=== PATIENT | male | born 1995 | race Caucasian/White ===

== ENCOUNTER 2016-10-14 22:43 | Emergency (ER) | payer OTHER ==
[~2016-10-14] VITALS: Ht 185.4 cm; Wt 72.8 kg
[2016-10-14 22:51] VITALS: TEMP 36.9; Ht 185.4 cm; Wt 72.8 kg
[2016-10-14] MEDS ORDERED: PROPARACAINE HCL 0.5% OP SOLN 15 ML BTL OP STA (23:50)
[2016-10-15 02:59] VITALS: BP 139/73; PULSE 72; O2SAT 99
[2016-10-15] MEDS ORDERED: PRED1SUS3 OPR (03:00)
[2016-10-15] MEDS ORDERED: PrednisoLONE ACET 1% OP SUSP 5 ML BTL OP ONE (03:00)
--- NOTE | 2016-10-15 03:01 | EMERGENCY ROOM VISIT NOTE ---
History First contact with patient: 23:16 Chief Complaint: EYE ASSESSMENT Stated Complaint: HIT WITH A BEER BOTTLE CAP IN EYE, BLURRY VISION History of Present Illness The patient is a 21 year old male who presents to the Emergency Department by private vehicle with a friend for evaluation of his RIGHT eye injury. The patient reports that he was opening a bottle of beer while prying the bottle on the edge of a table. The bowel Shot up and struck him in the affected eye. He reports taking his contact out immediately. He reports no pain to the eye itself, but noticed that he was having worsening blurry vision. He reports that he is unable to see if he looks down. He reports no history of trauma to the affected eye. He denies a blurry vision at this time. He rates his current discomfort as a 0/10. He denies any dizziness, light headedness, nausea , or vomiting. Patient's tetanus status is up-to-date. Review of Systems A complete 10-point Review of Systems was discussed with the patient, with pertinent positives and negatives listed in the History of Present Illness. All remaining Review of Systems questions can be considered negative unless otherwise specified. Social History Smoking Status: Current Some Day Smoker Smokeless Tobacco Use: No Alcohol Use: occasionally Drug Use: none Marital Status: single Occupation Status: employed Current/Historical Medications Scheduled Prednisolone Acetate (Ophth) (Pred Forte 1% Oph), 1 DROPS OPR QID Allergies Coded Allergies: No Known Allergies (Unverified , 10/14/16) Physical Exam Vital Signs Date Time Temp Pulse Resp B/P Pulse Ox O2 Delivery O2 Flow Rate FiO2 10/15/16 02:59 72 16 139/73 99 Room Air 10/14/16 22:51 36.9 85 18 145/82 96 Room Air Right Eye Acuity: 20/50 with glasses Left Eye Acuity: 20/15 with glasses Pain Rating (0-10): 0 Physical Exam VITAL SIGNS - Vital signs and nursing notes were reviewed. GENERAL - 21-year-old male appearing his stated age. Communicates well with provider and answers questions appropriately. HEAD - Normocephalic, Atraumatic. No Domingo's Sign or Raccoon's Eyes. No depressed skull fractures palpable. EYES - slight oval regularity appreciated to the RIGHT pupil. Reactive to light otherwise. Hyphema noted encompassing one fourth of the lower portion of the pupil. Sclera without noticeable foreign body or excoriations. No injection noted in the RIGHT eye. Without subconjunctival hemorrhage. Palpebral conjunctiva pink and moist with no injection or discharge noted. Slit lamp examination performed as further described. EARS - No deformities of external structures noted on gross examination bilaterally. Handle of malleus, umbo, cone of light, pars tensa/flaccid all easily visualized. NOSE - Midline and without cyanosis. Without discharge. MOUTH/OROPHARYNX - Without perioral cyanosis. Tongue midline with equal elevation of palate bilaterally. No tonsillar hypertrophy, erythema, or exudates noted. Good dentition noted. NECK - FROM assessed. No cervical lymphadenopathy noted. Medical Decision & Procedures Medications Administered Medications (Trade) Dose Ordered Sig/Ryne Route Start Time Stop Time Status Last Admin Dose Admin Proparacaine HCl (Alcaine 0.5% Oph Soln) 2 drops NOW STAT OP 10/14/16 23:50 10/14/16 23:51 DC 10/15/16 00:04 2 DROPS Prednisolone Acetate (Pred Forte 1% Oph Susp) 1 drops NOW ONCE OP 10/15/16 03:00 10/15/16 03:01 DC 10/15/16 02:56 1 DROPS Procedure Slit Lamp Examination was performed of the RIGHT eye(s). Alcaine drops were applied to the affected eye(s) for proper anesthetization. The affected eye(s) were stained with Fluorescein stain to precipitate adequate visualization of any conjunctival/scleral excoriations or ulcers. The patient's face was comfortably rested on the chin guard of the slit lamp apparatus. The lights were dimmed and the affected eye(s) were thoroughly examined under microscopy using the blue light. No uptake was present throughout. Additionally, the eye(s ) were examined under microscopy using the regular light. Close examination revealed a hyphema to the anterior chamber of the RIGHT eye encompassing one quarter of the inferior pole of the pupil. No active bleeding noted. Patient tolerated the procedure well and no complications were met. An Automated Tonometer was utilized to obtain bilateral orbital pressures. The pressures in the LEFT eye were found to be 10, 10, 10, and 12. The pressures in the RIGHT eye were found to be 10, 10, 10, and 10. Patient tolerated the procedure well and no complications were met. ED Course Patient was seen and evaluated by myself. Visual acuity was assessed. Slit- lamp exam and automated tonometry were performed. I did discuss the case with Dr. Carvalho of ophthalmology. He suggests placing the patient on Pred forte drops and following up in office early this week. He also suggests limited activity as well. He was educated on these findings. He was educated on worrisome symptoms for return visit to the emergency department. Patient discharged home in good condition. Medical Decision Given the patient's presentation and exam findings, I did elect to perform the above-mentioned workup. The patient resents today with a traumatic hyphema to the RIGHT eye. He has no focal deficits otherwise. His exam is otherwise unremarkable. His intraocular pressures are equal bilaterally which is certainly encouraging in this situation. There are no excoriations noted. In conversation with ophthalmology, it is thought that the patient can be followed up early in the week. He will use Pred Forte drops. He was encouraged to sleep with head of the bed upright as well as decreased activity over the next few days. The patient is from [place] of town. He reports that he will follow-up with his brake mechanic from today's visit. Patient discharged home in good condition. In the evaluation and treatment of this patient, the following differential diagnoses were considered: Corneal Abrasion, Conjunctivitis, Eye Contusion, Globe Injury, Orbital Floor Injury (Blowout Fracture), Corneal Ulcer, Keratitis , Herpes Zoster Ophthalmic, Blepharitis, Orbital Cellulitis, Iritis, Scleritis/ Episcleritis, Uveitis, Temporal Arteritis, Subconjunctival Hemorrhage. Impression Primary Impression: Traumatic hyphema of right eye Departure Information Dispostion Home / Self-Care Condition GOOD Prescriptions Prednisolone Acetate (Ophth) (PRED FORTE 1% OPH) 1 % Jenni 1 DROPS OPR QID for 5 Days, #300 ML Prov: Pete Villafuerte PA-C 10/15/16 Referrals No Doctor, Assigned (PCP) Patient Instructions ED Eye Injury Hyphema, [facility] Additional Instructions You have been treated in the Emergency Department for a RIGHT sided Traumatic Hyphema. Pred Forte drops to the RIGHT eye 4 times daily as prescribed. For pain control, you can use the following [id number] medicines (if >12 yo): - Regular strength (325mg/tab) Tylenol (acetaminophen) 2 tabs every 4-6 hours as needed. Do not exceed 12 tablets in a 24 hour period. Avoid taking more than 4 grams (4000 mg) of Tylenol per day. This includes any other sources of acetaminophen you may take on a regular basis. - Regular strength (200 mg/tab) Advil (ibuprofen) 1-2 tabs every 4-6 hours as needed. Do not exceed a dose of 3200 mg per day. Avoid rubbing your eyes for the next few days as this can cause irritation. Wear sunglasses when outside to help minimize your pain. You should relax in a quiet, dark room to help minimize your symptoms. You should seek evaluation of your Traumatic Hyphema by an brake mechanic following your visit to the Emergency Department. The Emergency Department is not capable of treating optic issues long-term. You should call your brake mechanic as soon as possible to make an appointment for evaluation of your follow-up care. Return to the emergency department if you develop the following symptoms despite treatment course outlined above: blurry vision, loss of vision, fever, intractable pain, increased redness, swelling, or purulent discharge. Problem Qualifiers Primary Impression: Traumatic hyphema of right eye Encounter type: initial encounter Qualified Codes: S05.11XA - Contusion of eyeball and orbital tissues, right eye, initial encounter
== END 2016-10-15 03:12 | disposition home or self-care (01) ==
LOC: C.EDB 22:47 → C.EDC 10-15 03:12
DX: S05.11XA Contusion of eyeball and orbital tissues, right eye, initial encounter (principal); W22.8XXA Striking against or struck by other objects, initial encounter; F17.210 Nicotine dependence, cigarettes, uncomplicated